=== PATIENT | male | born 1980 | race Hispanic/Latino ===

== ENCOUNTER 2018-03-21 03:07 | Emergency (ER) | payer OTHER | END 2018-03-21 03:26 | disposition home or self-care (01) | LOC: EDH 03:07 | DX: Z02.83 Encounter for blood-alcohol and blood-drug test (principal) ==

== ENCOUNTER 2020-02-04 17:36 | Emergency (ER) | payer OTHER ==
[2020-02-04] MEDS ORDERED: PREDNISONE 20 MG TABLET ONE (18:35)
[2020-02-04] MEDS ORDERED: FAMOTIDINE 20MG TAB 20 MG TAB ONE (18:35)
[2020-02-04] MEDS ORDERED: DIPHENHYDRAMINE HCL 25 MG CAPSULE ONE (18:36)
== END 2020-02-04 18:44 | disposition home or self-care (01) ==
LOC: EDH 17:36
DX: T63.441A Toxic effect of venom of bees, accidental (unintentional), initial encounter (principal); Y92.098 Other place in other non-institutional residence as the place of occurrence of the external cause
CPT/HCPCS: 99284; Q0163

== ENCOUNTER 2021-06-14 08:37 | Emergency (ER) | payer OTHER, SELFPAY ==
[~2021-06-14] VITALS: Ht 167.6 cm; Wt 65.8 kg
[2021-06-14 08:39] VITALS: BP 138/98
[2021-06-14] MEDS ORDERED: D-ME118S47 PO (14:21)
[2021-06-14] MEDS ORDERED: IBUP-2070 PO (14:21)
[2021-06-14] MEDS ORDERED: ONDA4TAB4 PO (14:21)
== END 2021-06-14 14:38 | disposition home or self-care (01) ==
LOC: EDH 08:37
DX: U07.1 COVID-19 (principal)
CPT/HCPCS: 87635; 99283; C9803